=== PATIENT | female | born 1955 | race Caucasian/White ===

== ENCOUNTER 2018-07-23 09:56 | Emergency (ER) | payer OTHER ==
[~2018-07-23] VITALS: Ht 162.6 cm; Wt 54.4 kg
--- NOTE | ~2018-07-23 | EKG ---
[place] [address] [facility] [place] [employer] [place] [address] ELECTROCARDIOGRAM REPORT Name: CRYS STEPHENSON Room #: [facility]#: [id number] Admission: 07/23/18 Attend Phys: Discharge: 07/23/18 Date of : 57 Report #: [id number] THIS REPORT FOR: //name// [facility] ED Test Date: 2018-07-23 Test Time: 10:10:42 Pat Name: CRYS STEPHENSON Department: Room: Gender: F Radiation Monitor: [facility] : 1955 Requested By: Kwesi Bergman Order Number: [id number] MD: Sj Bolden Measurements Intervals [place] Rate: 73 P: 25 IA: 130 QRS: 4 QRSD: 97 T: 61 QT: 390 QTc: 430 Interpretive Statements Sinus rhythm RSR' in V1 or V2, right VCD or RVH No previous ECG available for comparison Electronically Signed On 07-23-2018 13:30:54 [employer] MONITOR by Sj Bolden [email or web address] <ELECTRONICALLY SIGNED> By: Sj Bolden MD 07/23/18 1330 1010 [facility] Sj Bolden MD /TIMOTHY
[2018-07-23 10:47] LABS: ABSOLUTE NEUTROPHILS 4.4 thou/uL (1.4-8.2); BASOPHILS 0.9 % (0.0-2.0); EOSINOPHILS 17.3 % (0.0-3.0); HEMATOCRIT 37.9 % (37.0-47.0); HEMOGLOBIN 13.1 gm/dL (12.0-15.0); LYMPHOCYTES 23.2 % (24.0-44.0); MCH 30.4 pg (26.0-34.0); MCHC 34.7 g/dL (28.0-37.0); MCV 87.7 fL (80.0-100.0); MONOCYTES 6.5 % (1.0-8.0); PLATELET COUNT 309 thou/uL (150-400); POLYS 52.1 % (36.0-66.0); RBC 4.32 mil/uL (4.20-5.00); RDW 13.9 % (10.5-14.5); WBC 8.4 thou/uL (4.0-11.0)
[2018-07-23 10:50] LABS: ANION GAP 8 mmol/L (7-16); BUN 9 mg/dL (7-18); CALCIUM 9.8 mg/dL (8.5-10.1); CHLORIDE 104 mmol/L (98-107); CO2 29 mmol/L (21-32); CREATININE 0.6 mg/dL (0.6-1.0); GLUCOSE 89 mg/dL (74-106); SODIUM 141 mmol/L (136-145)
[2018-07-23 10:59] LABS: TROPONIN-I <0.06 ng/mL (<0.06)
[2018-07-23 12:06] VITALS: BP 115/66
== END 2018-07-23 12:07 | disposition home or self-care (01) ==
LOC: ER 09:56
PROVIDERS: Physician Assistant
DX: E87.6 Hypokalemia (principal); J94.8 Other specified pleural conditions; R07.89 Other chest pain; J45.909 Unspecified asthma, uncomplicated; Z88.2 Allergy status to sulfonamides

== ENCOUNTER 2018-08-31 16:58 | Emergency (ER) | payer OTHER ==
[~2018-08-31] VITALS: Ht 162.6 cm; Wt 53.5 kg
[2018-08-31 18:48] VITALS: BP 113/63
== END 2018-08-31 18:47 | disposition home or self-care (01) ==
LOC: ER 16:58
DX: R70.0 Elevated erythrocyte sedimentation rate (principal); R51 Headache; J45.909 Unspecified asthma, uncomplicated; Z88.2 Allergy status to sulfonamides